=== PATIENT | female | born 1960 | race Caucasian/White ===

== ENCOUNTER 2023-07-06 11:35 | Outpatient (CLI) | payer OTHER, SELFPAY | END 2023-07-06 11:36 | disposition home or self-care (01) | LOC: NFLDREF 07-07 06:31 | PROVIDERS: PCP Physician Assistant Medical; Referring Provider Physician Assistant Medical; Visit Provider Physician Assistant Medical | DX: I10 Essential (primary) hypertension (principal); H91.90 Unspecified hearing loss, unspecified ear; H93.19 Tinnitus, unspecified ear | CPT/HCPCS: 80053; 80061; 84443 ==